=== PATIENT | female | born 1945 | race Caucasian/White ===

== ENCOUNTER 2017-10-23 21:23 | Inpatient (IN) | payer OTHER ==
[~2017-10-23] VITALS: Ht 157.5 cm; Wt 111.3 kg
[~2017-10-23 21:23] MED LIST: ELAVIL50 MG PO; GLUCOPHAGE500 MG PO; LASIX20 MG PO; MOBIC7.5 MG PO; ULTRAM50 MG PO; VALTREX50 MG/ML PO; VITAMIN B12-FO1 EACH PO; VITAMIN D2000 UNI1 PO; ZYLOPRIM100 MG PO
[2017-10-24 13:35] VITALS: BP 142/62
[2017-10-24 20:57] VITALS: BP 173/78
[2017-10-24 21:10] LABS: HEMATOCRIT 39.9 % (36.0-46.0); HEMOGLOBIN 12.6 G/DL (11.9-15.5); MCH 29.2 PG (29.0-34.0); MCHC 31.6 G/DL (30.0-36.0); MCV 92.4 FL (83-99); PLATELET COUNT 286 K/uL (156-360); RBC DIS.WIDTH-CV 13.5 % (11.8-14.6); RBC DIS.WIDTH-SD 46.3 % (39-53); RED BLOOD COUNT 4.32 M/uL (3.80-5.20); WHITE BLOOD COUNT 16.5 K/uL (4.1-10.2)
[2017-10-24 21:34] LABS: CHLORIDE 104 MEQ/L (99-109); CREATININE 0.7 MG/DL (0.6-1.3); GFR ESTIMATE (CALCULATED) > 59 mL/min/; POTASSIUM 4.1 MEQ/L (3.7-5.4); SODIUM 141 MEQ/L (136-147); UREA NITROGEN (BUN) 12 mg/dL (9-23)
[2017-10-24 21:47] LABS: GLUCOSE 155 mg/dL (70-99)
[2017-10-25 00:02] VITALS: BP 147/65
[2017-10-25 04:27] VITALS: BP 130/60
[2017-10-25 06:42] LABS: HEMATOCRIT 41.5 % (36.0-46.0); HEMOGLOBIN 12.9 G/DL (11.9-15.5); MCH 29.1 PG (29.0-34.0); MCHC 31.1 G/DL (30.0-36.0); MCV 93.7 FL (83-99); PLATELET COUNT 272 K/uL (156-360); RBC DIS.WIDTH-CV 13.9 % (11.8-14.6); RBC DIS.WIDTH-SD 47.8 % (39-53); RED BLOOD COUNT 4.43 M/uL (3.80-5.20); WHITE BLOOD COUNT 12.3 K/uL (4.1-10.2)
[2017-10-25 07:02] LABS: CHLORIDE 104 MEQ/L (99-109); CREATININE 0.8 MG/DL (0.6-1.3); GFR ESTIMATE (CALCULATED) > 59 mL/min/; GLUCOSE 114 mg/dL (70-99); POTASSIUM 4.5 MEQ/L (3.7-5.4); SODIUM 140 MEQ/L (136-147); UREA NITROGEN (BUN) 12 mg/dL (9-23)
[2017-10-25 08:22] VITALS: BP 136/62
[2017-10-25] MEDS ORDERED: LOVENOX40 MG/0.4 SC (09:09)
[2017-10-25 15:44] VITALS: BP 140/63
[2017-10-25 19:53] VITALS: BP 134/62
[2017-10-25 23:56] VITALS: BP 133/60
[2017-10-26 04:16] VITALS: BP 124/64
[2017-10-26 06:53] LABS: HEMATOCRIT 37.5 % (36.0-46.0); HEMOGLOBIN 11.9 G/DL (11.9-15.5); MCH 29.5 PG (29.0-34.0); MCHC 31.7 G/DL (30.0-36.0); MCV 92.8 FL (83-99); PLATELET COUNT 247 K/uL (156-360); RBC DIS.WIDTH-CV 14.2 % (11.8-14.6); RBC DIS.WIDTH-SD 48.6 % (39-53); RED BLOOD COUNT 4.04 M/uL (3.80-5.20); WHITE BLOOD COUNT 14.5 K/uL (4.1-10.2)
[2017-10-26 07:15] LABS: CHLORIDE 105 MEQ/L (99-109); CREATININE 0.7 MG/DL (0.6-1.3); GFR ESTIMATE (CALCULATED) > 59 mL/min/; GLUCOSE 106 mg/dL (70-99); POTASSIUM 4.3 MEQ/L (3.7-5.4); SODIUM 141 MEQ/L (136-147); UREA NITROGEN (BUN) 9 mg/dL (9-23)
[2017-10-26] MEDS ORDERED: TRAMADOL HCL50 MG PO (08:39)
[2017-10-26 09:15] VITALS: BP 147/70
== END 2017-10-26 12:26 | disposition home or self-care (01) | DRG 740 ==
LOC: ENRESERV 21:23 → 2SOUTH 10-24 11:05 → ENRESERV 10-24 17:15 → 2EAST 10-24 19:47
PROVIDERS: Obstetrics & Gynecology Gynecologic Oncology
PROC: 0UT70ZZ Resection of Bilateral Fallopian Tubes, Open Approach (ICD-10-PCS; principal; 2017-10-24)
PROC: 0UT90ZZ Resection of Uterus, Open Approach (ICD-10-PCS; principal; 2017-10-24)
PROC: 07BC0ZZ Excision of Pelvis Lymphatic, Open Approach (ICD-10-PCS; principal; 2017-10-24)
PROC: 0UT20ZZ Resection of Bilateral Ovaries, Open Approach (ICD-10-PCS; principal; 2017-10-24)
DX: C54.1 Malignant neoplasm of endometrium (principal); E11.9 Type 2 diabetes mellitus without complications; M10.9 Gout, unspecified; M25.50 Pain in unspecified joint; B00.89 Other herpesviral infection; Z79.84 Long term (current) use of oral hypoglycemic drugs
CPT/HCPCS: 80048; 80053; 81003; 82948; 85025; 85027; 85610 GA; 85730 GA; 86850; 86900; 86901; 86920; 87086 GA; 88305; 88309; 93005; 94799; J0131; J0330; J1100; J1170; J1580; J1650; J1885; J2405; J2710; J2765; J3010; J7030; J7050; J7120; J7643; S0030